=== PATIENT | male | born 1965 | race Caucasian/White ===

== ENCOUNTER → 2020-09-28 | Outpatient (CLI) | payer OTHER ==
[~2020-09-28] MED LIST: ALBU90OI; CEPH500 PO; DEXL60CA3; HYDACE5 PO; LISHYD1012; NAPR220; NAPR550 PO; Norco 10-325 T1 EACH PO; OXYACE5T PO; Omeprazole20 M1; PARO10; SULTRIDS PO; TRAZ50
== END | disposition home or self-care (01) ==
LOC: LAB SHORT 12:17
DX: R30.0 Dysuria (principal)
CPT/HCPCS: 87086

== ENCOUNTER 2025-01-14 19:00 | Emergency (ER) | payer OTHER ==
[~2025-01-14] VITALS: Ht 180.3 cm; Wt 117.9 kg
[2025-01-14 19:09] VITALS: BP 152/103
[2025-01-14] MEDS ORDERED: AMLODIPINE-OLM1 EACH PO (19:34)
== END 2025-01-14 19:50 | disposition home or self-care (01) ==
LOC: ER 19:00
DX: S50.11XA Contusion of right forearm, initial encounter (principal); I10 Essential (primary) hypertension; W19.XXXA Unspecified fall, initial encounter; Z79.899 Other long term (current) drug therapy; Z91.040 Latex allergy status; Z88.5 Allergy status to narcotic agent; Z88.8 Allergy status to other drugs, medicaments and biological substances
CPT/HCPCS: 73030; 73070; 73090; 99283-25